=== PATIENT | male | born 1930 | race Caucasian/White ===

== ENCOUNTER 2018-12-20 18:55 | Observation (INO) | payer MEDICARE ==
[2018-12-20 21:08] LABS: Troponin I 0.018 ng/mL (< 0.028)
[2018-12-20 22:02] VITALS: BMI 25.8
[2018-12-20 23:12] LABS: Troponin I 0.014 ng/mL (< 0.028)
--- NOTE | 2018-12-21 09:14 | CT ---
CTA OF THE ABDOMEN AND PELVIS WITH BILATERAL LOWER EXTREMITY RUNOFF UTILIZING IV CONTRAST AND 3D REFO RMATTED IMAGING: INDICATION: History of chest pain with known aortic aneurysm with intense pain in the feet when the patient walks . COMPARISON: CTA aortic dissection protocol 12/20/2018. FINDINGS: ABDOMEN: There is interstitial fibrotic change involving both lower lobes with areas of subsegmental volume lo ss. There are prominent mitral annular and aortic annular calcifications. The spleen is mildly enlarged measuring 15.1 cm. No focal hepatic lesion is evident. There is a sma ll gallstone within the gallbladder. The pancreas, adrenal glands, and kidneys are normal-appearing. No free fluid or enlarged lymph nodes are evident. There is scattered diverticula involving the colon without evidence of active diverticulitis. There is a mild amount of retained stool within the colon. There is a normal appendix in the right lower q uadrant. PELVIS: There is a fat-containing right inguinal hernia. The visualized bladder, rectum, and perirectal soft tissues are unremarkable-appearing. No free fluid or enlarged lymph nodes are evident. VASCULATURE: The aneurysmal dilatation of the descending thoracic aorta and the infrarenal abdominal aorta is stab le. No definite hemodynamically significant stenosis is seen involving the celiac or SMA origins. The re nal arteries appear patent. The JOCELYNE is patent off of the large infrarenal abdominal aortic aneurysm. The right common iliac artery and iliac artery bifurcations are patent. The right common femoral art reinaldo is patent. The right common femoral bifurcation is patent. The right superficial femoral artery is patent. The right popliteal artery is patent. There is diminished contrast opacification seen i nvolving the distal right popliteal artery with no appreciable flow seen within the foreleg vasculatu re. The left common femoral artery is patent. The left common femoral bifurcation is patent. The left s uperficial femoral artery is patent. The left popliteal artery is patent. There is some high-grade stenosis involving the origin of the left anterior tibial artery. There are multifocal areas of high -grade stenosis involving the left posterior tibial artery. There is complete occlusion of the left anterior tibial artery at the level of the mid diaz. The peroneal artery is occluded within the dist al left foreleg. No acute osseous abnormality is evident. IMPRESSION: 1. Stable descending thoracic and infrarenal abdominal aortic aneurysms. The largest aneurysm is se en within the infrarenal abdominal aorta measuring 6.8 cm. Visualized celiac, superior mesenteric ar levi, and renal artery origins appear patent. The inferior mesenteric artery origin is off of the in frarenal abdominal aorta and is patent. 2. There is high-grade stenosis with complete occlusion of the distal right popliteal artery with di minished opacification seen within the foreleg vasculature through collaterals. 3. Multifocal areas of high-grade stenosis involving the proximal and mid left posterior tibial joey ry. There is complete occlusion of the left anterior tibial artery at its mid segment of the left fo releg. There is complete occlusion of the distal left peroneal artery at the level of the distal lef t foreleg. 4. Nonspecific splenomegaly. 5. Cholelithiasis. 6. Interstitial fibrotic change of both lower lobes. POS: H
[2018-12-21 12:12] VITALS: BP 141/76; TEMP 97.5
--- NOTE | 2018-12-21 17:03 | CON ---
DATE OF CONSULTATION: 12/21/2018 REQUESTING PHYSICIAN: Dr. Polanco in the ER. CHIEF COMPLAINT: Right parasternal chest pain. HISTORY OF PRESENT ILLNESS: The patient is an 88-year-old man with minimal known past medical history. The patient relates having had a pacemaker implanted in [place] about 10 years ago. He describes episodic pacemaker checks about every six months. He describes having been diagnosed with hypertension, but having never quite gotten back around taking his medicine when he ran out about six months ago. He apparently was aware of a modest size aneurysm involving his descending thoracic aorta, but does not really remember the last time it was checked. He presented to the emergency room at an outlying facility with complaints of right parasternal chest pain. The pain had a pleuritic quality to it, but was fairly persistent. He had no left-sided chest pain. No nausea, no radiation to his neck, jaws, extremities, or back. He describes having had a similar episode about 10 years ago and no cause for it was identified at that time. When he presented to the emergency room, chest x-ray was fairly unremarkable other than the presence of some aortic ectasia. A CT scan done foot with dissection protocol showed extensive calcification in his thoracic aorta and one focal area that was 4.9 cm, but the abdominal cut showed a large infrarenal abdominal aortic aneurysm of which the patient was previously unaware. He ruled out for myocardial infarction by enzymes and his discomfort gradually subsided. He was transferred here for observation in part because of his atypical chest pain and in part because of his aneurysm. PAST MEDICAL HISTORY: Significant for hypertension, but has not been on any medications for several months. He has had a pacemaker implanted and he has a known thoracic aneurysm. He reports that as a teenager, he had swelling associated with penicillin and has never had penicillin since. The patient quit smoking many years ago. FAMILY HISTORY: Negative for aneurysmal disease. REVIEW OF SYSTEMS: Negative for any eye, speech, facial, or extremity symptoms consistent with TIAs. Negative for any hip, buttock, thigh, or calf pain consistent with claudication. It is positive for some paresthesias that are at times painful in the soles of his feet, those paresthesias have been present for about 2 years. It is negative for any shortness of breath. Negative for any typical anginal-type chest pain. PHYSICAL EXAMINATION: GENERAL: He is a robust-appearing man, who appears a bit younger than his stated age. VITAL SIGNS: In the ER, his heart rate was 66 and blood pressure 144/76. This morning, his heart rate was 63 and blood pressure 141/76. He is 6 feet tall and weighs 190-3/4 pounds. HEENT: He has no xanthelasma. NECK: No JVD. No carotid bruits. CHEST: Clear to auscultation. He has a regular rate and rhythm. He has no chest wall tenderness. He has incision in his left upper chest consistent with the stated history of pacemaker implantation. ABDOMEN: Mildly protuberant, soft and nontender without palpable masses or bruits. EXTREMITIES: He has palpable radial, femoral, popliteal, and dorsalis pedis pulses bilaterally. He has no clubbing, cyanosis, or edema. NEUROLOGIC: Grossly nonfocal. LABORATORY DATA: His white count was 3.6, hemoglobin 13.9, hematocrit 45.6, and platelets are 151,000. The D-dimer was 3.05. His chemistries were normal. Glucose was 152, BUN 12, and creatinine 0.95. Troponins were 0.018, 0.012, 0.018, and 0.014. His albumin was 4.1. LFTs were normal. Calcium 9.6. His chest x-ray showed prominent aortic knob with a bit of ectasia and there is calcification in the aortic knob. He has dual-chamber pacemaker in place via the left subclavian approach. His CT scan showed extensive atherosclerotic and calcific disease in his aorta [QAMARKER] descending aorta was about 4.9 cm. His abdominal aorta, however in infrarenal position was approximately 6.8 cm AP x 6.5 cm transversely. He had calcific disease in tortuous iliacs and the CT scan does not quite go down to the right iliac bifurcation. IMPRESSION AND RECOMMENDATIONS: Incidental finding of large infrarenal abdominal aortic aneurysm. While this is not an emergency, it is large enough to warrant expeditious workup heading towards repair given his advanced age, I think EVAR if feasible is an excellent choice. I am going to set up CTA with aneurysm protocol to complete that evaluation and we will plan on seeing him in my office next week to discuss in more detail the approach to his aneurysm repair. In the meantime, we will have the computer analysis of his CTA done to select an endograft prosthesis. Job ID: [id number]
--- NOTE | 2018-12-21 22:52 | DIS ---
DATE OF ADMISSION: 12/20/2018 DATE OF DISCHARGE: 12/21/2018 PRINCIPAL DIAGNOSIS: Chest pain. SECONDARY DIAGNOSES: Infrarenal abdominal aortic aneurysm and descending thoracic aortic aneurysm. PROCEDURES PERFORMED: None. HISTORY OF PRESENT ILLNESS AND HOSPITAL COURSE: The patient is an 88-year-old man with scant past medical history, who [facility] with right parasternal chest pain that was somewhat pleuritic in nature, fairly persistent. He did have a similar episode about 10 years ago for which no particular cause could be found. He had an elevated D-dimer, prompting CT scanning that showed no evidence of pulmonary embolism or aortic dissection, but did show extensive atherosclerotic disease throughout his aorta. He had a modest sized aneurysm involving his descending thoracic aorta, which according to the patient has been known for about 10 years, but large infrarenal abdominal aortic aneurysm was also identified, which was a new finding to his knowledge. It measured up to 6.8 cm, but was asymptomatic. CT scan that he had did not quite go far enough distally to adequately plan stent graft repair. I was contacted by the emergency room physician in [place] about this and he was transferred here and I was contacted last night apparently with the expectation that he would be kept in the hospital because of his aneurysm. No clear-cut cause of his chest pain was identified. He ruled out for myocardial infarction and the pain that I was under the impression was sufficiently suspicious for cardiac pain, when I questioned him proved to not be. He underwent CTA with AAA protocol and then was allowed to go home with plans for followup in the office next week to discuss aneurysm repair in more detail and in the mean time, his images will be sent for analysis to allow for prosthesis selection and operative planning. Job ID: [id number]
== END 2018-12-21 14:45 | disposition home or self-care (01) ==
LOC: ERS 18:55 → 2SW 19:30
PROVIDERS: ADMIT Thoracic Surgery (Cardiothoracic Vascular Surgery); ATTEND Thoracic Surgery (Cardiothoracic Vascular Surgery)
DX: R07.2 Precordial pain (principal); I71.4 Abdominal aortic aneurysm, without rupture; I71.2 Thoracic aortic aneurysm, without rupture; I10 Essential (primary) hypertension; Z95.0 Presence of cardiac pacemaker; Z87.891 Personal history of nicotine dependence; Z88.0 Allergy status to penicillin
CPT/HCPCS: 75635; 84484; 93005; 99285; G0378 ×3; 36415

== ENCOUNTER 2019-03-16 12:15 | Outpatient (CLI) | payer MEDICARE ==
--- NOTE | 2019-03-16 13:30 | CT ---
EXAM: CTA Angio Abd Pelvis W WO Con 3-D reconstruction are provided PROVIDED CLINICAL HISTORY: Abdominal aortic aneurysm. COMPARISON: 12/21/2018. FINDINGS: There are mild chronic interstitial lung changes again present at each lung base. Dual lead left subclavian cardiac pacemaking leads are noted in place. There is prominent calcificati on of the mitral valve annulus. The spleen is borderline enlarged measuring 13.7 cm. Gallbladder calculus is again seen. The liver, pancreas, bilateral adrenal glands, kidneys, and urinary bladder demonstrate a normal CT a ppearance for phase of imaging. Colonic diverticulosis is again present. The appendix is visualized and normal in caliber. A fat-containing right inguinal hernia is again seen. No free fluid or fluid collection is seen in the abdomen or pelvis. There is no lymphadenopathy. Multilevel degenerative changes are seen in the spine. Again noted is a large infrarenal abdominal aortic aneurysm which measures 7.8 cm craniocaudal x7.1 c m AP x6.8 cm transverse and previously measured 7.8 cm craniocaudal x6.8 cm AP x6.6 cm transverse. There is a large amount of mural thrombus seen within the aneurysm. The aneurysm extends to the level of the iliac artery bifurcation but does not involve the iliac arteries. Vascular calcifications are again seen in the iliac arteries as well as visualized femoral arteries. The right common femoral artery is ectatic with eccentric atherosclerotic plaque seen. The abdominal aorta at the level of the renal arteries measures 3.1 cm. The infrarenal abdominal aortic aneurysm begins approximately 4.9 cm below the level of the lowest right renal artery. The descending thoracic aorta at the level of aortic hiatus is mildly dilated measuring 3.6 cm. There is atherosclerotic plaque seen at the origins of the celiac and superior mesenteric arteries wi thout significant narrowing present. The JOCELYNE remains patent. However, there is mixing of contrast seen within the abdominal aortic aneurysm at the level of the origin of the JOCELYNE. There is mild athero sclerotic plaque at the origins of each renal artery, but the single renal arteries bilaterally do appear patent. IMPRESSION: 1. Mild interval enlargement of the large infrarenal abdominal aortic aneurysm with greatest AP dimen isabela of 7.1 cm and previously the AP dimension was 6.8 cm. Large amount of mural thrombus is present. The aneurysm extends to the iliac artery bifurcation. 2. Stable dilatation of the descending thoracic aorta. 3. Cholelithiasis. 4. Borderline enlargement of the spleen similar to prior exam. 5. Fat-containing right inguinal hernia. 6. Colonic diverticulosis.
== END 2019-03-16 12:16 | disposition home or self-care (01) ==
LOC: CT 12:15
PROVIDERS: ATTEND Thoracic Surgery (Cardiothoracic Vascular Surgery)
DX: I71.4 Abdominal aortic aneurysm, without rupture (principal); I71.2 Thoracic aortic aneurysm, without rupture; K80.20 Calculus of gallbladder without cholecystitis without obstruction; K57.30 Diverticulosis of large intestine without perforation or abscess without bleeding; K40.90 Unilateral inguinal hernia, without obstruction or gangrene, not specified as recurrent
CPT/HCPCS: 74174

== ENCOUNTER 2019-10-24 17:02 | Observation (INO) | payer MEDICARE ==
[2019-10-24] MEDS ORDERED: Nitroglycerin 2% Ointment 1 INCH/1 GM Packet ONE (18:26)
[2019-10-24 20:25] LABS: CKMB 2.8 ng/mL (0-6.6)
--- NOTE | 2019-10-24 22:39 | HP ---
PRIMARY CARE PHYSICIAN: Kashif Fan MD CHIEF COMPLAINT: Double vision. HISTORY OF PRESENT ILLNESS: The patient is an extremely pleasant 89-year-old male with past medical history significant for hypertension, AAA without repair and a pacemaker. He presented to the ER today after he was taking his to lunch around noon and stated that he suddenly started having double vision from his right eye. When he would cover his right eye or close it, the double vision would disappear. He also states when he was trying to walk, he was falling to the right. He is unsure if it was a balance issue or because of the double vision. He denies any trauma or any recent illnesses. Denies any history of stroke in the past. Currently, the patient no longer sees double and he states he is back to his baseline. The double vision resolved on its own. The patient was seen in [facility], where they performed a brain CT, [place] CTA, lab work and an EKG prior to transferring to the [place] ED. PAST MEDICAL HISTORY: Hypertension, AAA without repair. PAST SURGICAL HISTORY: Pacemaker insertion. ALLERGIES: PENICILLIN. MEDICATIONS: Vitamin D3. SOCIAL HISTORY: The patient lives with his whom he is the caregiver for as she has advanced dementia. He is a retired communications systems engineer. He denies smoking, he states he quit over 20 years ago. Denies illicit drug use. He does have a history of alcohol abuse, but only drinks socially now. FAMILY HISTORY: Negative for anything pertinent to admission. REVIEW OF SYSTEMS: All other review of systems negative unless noted in the HPI. PHYSICAL EXAMINATION: VITAL SIGNS: Blood pressure 145/74, pulse 64, respiratory rate 20, temperature 98.2 orally, pain zero, O2 saturation 96% on room air. GENERAL: Appears nontoxic, appears pain free, very talkative. HEENT: Head atraumatic, normocephalic. Extraocular muscles intact. No nystagmus. Visual moore appeared normal secondary to finger counting. RESPIRATORY: Normal chest rise. Clear to auscultation bilaterally. No wheezing or rales. No rhonchi. CARDIAC: Pacemaker in place. Regular rate and rhythm. No murmurs, no rubs or gallops. ABDOMEN: Bowel sounds normal. Nontender. No distention noted. EXTREMITIES: No cyanosis, no edema. NEURO: The patient is oriented to person, place, and time. Speech is normal. Gait not assessed at this time. Cranial nerves 2 through 12 intact. DTRs normal. No focal deficits. No cerebellar deficits. No nystagmus. No double vision. PSYCH: Normal affect. Normal behavior. LABORATORY DATA: EKG showed atrial paced 61 beats per minute. Brain CT, no acute intracranial abnormality, but did show some mild chronic small-vessel white matter ischemic changes with a remote small lacunar infarct involving the right cerebellar hemisphere. CT of [place] angio showed no significant stenosis or occlusion levels of [place]. Did show irregular edema in the distal right M1 segment and scattered atherosclerosis throughout the cervical carotid arteries with no significant stenosis noted. Laboratory work: White blood cells 4.3, hemoglobin 13.4, hematocrit 45.9, platelets 129. Sodium 142, potassium 4.0. BUN 16, creatinine 1.08, GFR is 64, glucose 130. Initial troponin 0.179. Next troponin 0.200. BNP 49.3, TSH 2.714. IMPRESSION AND PLAN: 1. Transient ischemic attack, acute, stable. We will consult Neurology in the a.m. We will attempt to have an MRI of the brain completed; however, due to pacemaker it may not be able to be completed. We will start patient on aspirin and atorvastatin with a fasting lipid panel to be drawn in the morning. Echo also to be completed. Stroke team to see the patient. 2. Elevated troponin. 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 May consult Cardiology if the patient becomes symptomatic or if it continues to became elevated. 3. Gastrointestinal and deep vein thrombosis prophylaxis addressed. The patient wishes to be full code and surrogate decision maker as the patient's medical power of mergers and acquisitions attorney is his Dragan lorenz. Job ID: [id number] [facility]
[2019-10-24] MEDS ORDERED: Ondansetron PF 4 MG/2 ML Vial IVP PRN (23:20)
[2019-10-24] MEDS ORDERED: Ondansetron ODT 4 MG TAB SL PRN (23:20)
[2019-10-24] MEDS ORDERED: Nitroglycerin 2% Ointment 1 INCH/1 GM Packet TOP SCH (23:59)
[2019-10-25] MEDS: Famotidine 20 MG TAB PO SCH ×2 (00:08→13:20)
[2019-10-25] MEDS: Atorvastatin Calcium 40 MG TAB PO SCH ×2 (00:08→19:08)
[2019-10-25 00:09] LABS: Troponin I 0.187 ng/mL (< 0.028)
[2019-10-25 02:34] VITALS: BMI 27.8
[2019-10-25 04:45] LABS: #Eosinphils 0.2 thou/uL (0.0-0.7); #Lymphocytes 0.8 thou/uL (1.20-3.40); #Monocytes 0.4 thou/uL (0.11-0.59); #Neutrophils 2.2 thou/uL (1.40-6.50); %Basophils 0.4 % (0.0-1.0); %Eosinophils 4.3 % (0.0-10.0); %Lymphocytes 22.3 % (21.0-51.0); %Monocytes 10.6 % (0.0-10.0); %Neutrophils 62.5 % (42.0-75.0); Hemoglobin 11.7 g/dL (14.0-18.0); Mean Corpuscular HGB CONC 31.6 g/dL (32.0-36.0); Mean Corpuscular Hemoglobin 27.7 pg (27.0-31.0); Mean Corpuscular Volume 87.8 fL (78.0-98.0); Mean Platelet Volume 7.9 fL (7.4-10.4); Platelet Count 117 thou/uL (130-400); RBC Distribution Width 14.3 % (11.5-14.5); Red Blood Cell (RBC) Count 4.23 mill/uL (4.70-6.10); White Blood Cell (WBC) Count 3.6 thou/uL (4.8-10.8)
[2019-10-25 05:02] LABS: Anion Gap 9 mmol/L (10-20); BUN (Urea Nitrogen) 14 mg/dL (8.4-25.7); Calc. Creatinine Clearance 65 mL/min (70-130); Calcium 8.3 mg/dL (7.8-10.44); Carbon Dioxide 28 mmol/L (23-31); Cardiac Risk 5.2 (Less than 4.5); Chloride 107 mmol/L (98-107); Cholesterol 150 mg/dl (< 200 Desired); Estimated GFR-MDRD 70; Glucose 116 mg/dL (83-110); HDL Cholesterol 29 mg/dL (>60 Neg Risk); Potassium 3.7 mmol/L (3.5-5.1); Sodium 140 mmol/L (136-145); Triglycerides 474 mg/dL (Less than 150)
[2019-10-25] MEDS ORDERED: Aspirin 81 mg Enteric Coated Tablet PO SCH (09:00)
[2019-10-25] MEDS ORDERED: Enoxaparin Sodium 40 MG/0.4 ML SYRINGE SC SCH (09:00)
--- NOTE | 2019-10-25 10:48 | ULT ---
BILATERAL CAROTID DUPLEX ULTRASOUND: HISTORY: Double vision. TECHNIQUE: Seo scale ultrasound with color flow and spectral Doppler imaging of the extracranial carotid artery systems was performed bilaterally. FINDINGS: There is plaque formation on both sides. The peak systolic velocity in the right ICA measures 78 cm/s with an end-diastolic velocity of 22 cm/ s and a systolic ratio of 1.03. The peak systolic velocity in the left ICA measures 65 cm/s with an end-diastolic velocity of 20 cm/s and a systolic ratio of 0.61. Flow in both vertebral arteries remains antegrade. IMPRESSION: No evidence of hemodynamically significant stenosis. POS: [facility]
--- NOTE | 2019-10-25 11:37 | PDOC.HOSPP ---
- Subjective Encounter Date: 10/25/19 Encounter Time: 07:10 Subjective: Patient seen and examined. No new complaints. No overnight events - Objective Vital Signs & Weight: Vital Signs (12 hours) Temp Pulse Resp BP Pulse Ox 10/25/19 04:00 97.7 F 63 16 108/57 L 96 10/25/19 00:16 98.2 F 59 L 18 114/62 96 Weight Weight 204 lb 14.4 oz I&O: 10/24/19 10/25/19 10/26/19 06:59 06:59 06:59 Intake Total 500 Balance 500 Result Diagrams: 10/25/19 04:30 10/25/19 04:30 Radiology Reviewed by me: Yes EKG Reviewed by me: Yes Hospitalist ROS - Review of Systems Constitutional: denies: fever, chills, sweats, weakness, malaise, other ENT: denies: ear pain, ear discharge, nose pain, nose discharge, nose congestion , mouth pain, mouth swelling, throat pain, throat swelling, other Respiratory: denies: cough, dry, shortness of breath, hemoptysis, SOB with excertion, pleuritic pain, sputum, wheezing, other Cardiovascular: denies: chest pain, palpitations, orthopnea, paroxysmal noc. dyspnea, edema, light headedness, other Gastrointestinal: denies: nausea, vomiting, abdominal pain, diarrhea, constipation, melena, hematochezia, other Genitourinary: denies: dysuria, frequency, incontinence, hematuria, retention, other Musculoskeletal: denies: neck pain, shoulder pain, arm pain, back pain, hand pain, leg pain, foot pain, other Skin: denies: rash, lesions, andrew, bruising, other - Medication Medications: Active Medications Generic Name Dose Route Start Last Admin Trade Name Freq PRN Reason Stop Dose Admin Aspirin 81 mg 10/25/19 09:00 10/25/19 10:21 Ecotrin PO 81 mg DAILY GEORGE Administration Atorvastatin Calcium 40 mg 10/24/19 21:00 10/25/19 00:08 Lipitor PO 40 mg HS GEORGE Administration Cholecalciferol 1,000 units 10/25/19 09:00 10/25/19 10:21 Vitamin D3 PO 1,000 units DAILY GEORGE Administration Enoxaparin Sodium 40 mg 10/25/19 09:00 10/25/19 10:20 Lovenox SC 40 mg 0900 GEORGE Administration Famotidine 20 mg 10/24/19 21:00 10/25/19 00:08 Pepcid PO 20 mg BID GEORGE Administration Sodium Chloride 10 ml 10/24/19 20:43 10/25/19 10:21 Flush - Normal Saline IVF 10 ml PRN PRN Administration Saline Flush - Exam General Appearance: NAD, awake alert Eye: PERRL, anicteric sclera ENT: normocephalic atraumatic, no oropharyngeal lesions Neck: supple, symmetric, no JVD, no thyromegaly Heart: RRR, no murmur, no gallops, no rubs, normal peripheral pulses Respiratory: CTAB, no wheezes, no rales, no ronchi Gastrointestinal: soft, non-tender, non-distended, normal bowel sounds Extremities: no cyanosis, no clubbing, no edema Skin: normal turgor, no lesions Neurological: cranial nerve grossly intact, no focal deficits Musculoskeletal: normal tone, normal strength Psychiatric: normal affect, normal behavior Hosp A/P (1) TIA (transient ischemic attack) Code(s): G45.9 - TRANSIENT CEREBRAL ISCHEMIC ATTACK, UNSPECIFIED Status: Acute (2) Elevated troponin Code(s): R79.89 - OTHER SPECIFIED ABNORMAL FINDINGS OF BLOOD CHEMISTRY Status : Acute (3) Hypertriglyceridemia Code(s): E78.1 - PURE HYPERGLYCERIDEMIA Status: Acute (4) Pancytopenia Code(s): D61.818 - OTHER PANCYTOPENIA Status: Acute - Plan old records reviewed/req, plan discussed w/ family neuro consulted mri not possible due to pacemaker echo carotid normal will add folic acid and vitamin b12 discharge pending above
--- NOTE | 2019-10-25 12:25 | CON ---
NEUROLOGY DOCUMENTATION DATE OF CONSULTATION: 10/25/2019 REASON FOR CONSULTATION: Double vision, rule out CVA. HISTORY OF PRESENT ILLNESS: Mr. Alves is an 89-year-old male with medical history significant for hypertension and AAA without repair and status post pacemaker. He presented to the emergency room yesterday at [facility] in [place] because of double vision. He was taking his to lunch around noon and started having double vision from the right eye, he sees object side by side and the double vision goes away when he closes the other eye. He also had problem with walking and was falling to the right. The patient denies any recent illness, nausea, vomiting, headache, vertigo, chest pain, abdominal pain, focal weakness or paresthesias associated with the episode. He went to [place] ER with a head CT and the CTA. The CTA of the [place] was done, which was unremarkable. EKG was also done, which was also unremarkable. The patient denies any history of prior episodes and the symptoms resolved completely today. He denies any double vision. REVIEW OF SYSTEMS: All 14 systems were reviewed and were negative except the pertinent positives and negatives mentioned in the HPI. PAST MEDICAL HISTORY: Hypertension, AAA without repair. PAST SURGICAL HISTORY: Pacemaker insertion. ALLERGIES: PENICILLIN. MEDICATIONS: Vitamin D. SOCIAL HISTORY: The patient is , lives with his who has advanced dementia, retired fiber optics engineer. Denies smoking, alcohol, illegal drug use. He quit smoking over 20 years ago. FAMILY HISTORY: Negative for stroke. PHYSICAL EXAMINATION: VITAL SIGNS: Blood pressure 140/70, pulse 80, respiratory rate 18. CVS: Regular rate and rhythm. CHEST: Clear. ABDOMEN: Soft. NECK: No carotid bruit. NEUROLOGIC: Mental status: The patient is alert and oriented to person, place , and time. Speech is normal. Fund of knowledge is adequate. Recent and remote memory intact. Cranial nerves 2 through 12 intact. Deep tendon reflexes symmetric bilaterally. Cerebellar, finger-nose testing intact. Sensory intact. Gait deferred due to patient's safety reasons. DATA REVIEWED: I reviewed the head CT, which did not reveal any acute intracranial pathology. His CTA of the [place] did not show any significant stenosis. EKG was paced with 61 beats per minute. Lab work was essentially unremarkable. ASSESSMENT AND PLAN: Mr. Alves is an 89-year-old pleasant male, who was consulted for a transient ischemic attack, unable to perform an MRI because of pacemaker. Recommend aspirin and statin for secondary stroke prevention. We will follow up on fasting lipid panel, TSH and hemoglobin A1c. Neuro checks every 4 hours, telemetry, 2D echo to rule out cardioembolic source. Continue home medications. PT/OT. We will continue to follow. Thank you for the consult. Carotid Dopplers to rule out significant stenosis. Job ID: [id number] [facility]
[2019-10-25] MEDS ORDERED: Loperamide HCl 2 MG CAP PO PRN (13:52)
[2019-10-25] MEDS ORDERED: Senokot S 8.6-50 MG TAB PO PRN (13:52)
[2019-10-25] MEDS ORDERED: Bisacodyl 5 MG TAB PO PRN (13:52)
[2019-10-25] MEDS ORDERED: Cepastat Lozenges 1 LOZ PO PRN (13:52)
[2019-10-25] MEDS ORDERED: Zolpidem Tartrate 5 MG TAB PO PRN (13:52)
[2019-10-25] MEDS ORDERED: Ondansetron PF 4 MG/2 ML Vial IVP PRN (13:52)
[2019-10-25] MEDS ORDERED: Diabetic Tussin 200 MG/10 ML UDCUP PO PRN (13:52)
[2019-10-25] MEDS ORDERED: Calcium Carbonate 500 MG ChewTAB PO PRN (13:52)
[2019-10-25] MEDS ORDERED: Ondansetron ODT 4 MG TAB PO PRN (13:52)
[2019-10-25] MEDS ORDERED: Sodium Chloride 0.65% Nasal 44 ML BOT EA NARE PRN (13:52)
[2019-10-25] MEDS ORDERED: hydrALAZINE 20 MG/ML VIAL SLOW IVP PRN (13:52)
[2019-10-25] MEDS ORDERED: Loratadine 10 MG TAB PO PRN (13:52)
[2019-10-25 16:07] VITALS: BP 137/69; TEMP 97.7
--- NOTE | 2019-10-26 08:32 | DIS ---
DATE OF ADMISSION: 10/24/2019 DATE OF DISCHARGE: 10/25/2019 PRIMARY CARE PHYSICIAN: . DISCHARGE DISPOSITION: Home. PRIMARY DISCHARGE DIAGNOSES: 1. Transient ischemic attack. 2. Demand ischemia. 3. Pancytopenia. 4. Hypertriglyceridemia. SECONDARY DISCHARGE DIAGNOSIS: None. PRIMARY PROCEDURE/OPERATION: None. RADIOLOGICAL INVESTIGATION: Carotid Doppler negative for any stenosis. Echocardiography showed a normal EF, diastolic dysfunction. SIGNIFICANT LABORATORY DATA: Hemoglobin 11.7, WBC 3.6, platelet 117. Creatinine 1.01. Troponin 0.187. Triglycerides 474. DISCHARGE MEDICATIONS: 1. Vitamin D3 1000 units p.o. daily. 2. Aspirin 81 mg p.o. daily. 3. Lipitor 40 mg p.o. q.h.s. 4. Vitamin B12 1000 mcg p.o. daily. 5. Folic acid 1 mg p.o. daily. CONTRAINDICATION: None. CODE STATUS: Full code. INPATIENT INTERPRETATIVE DANCER: Neurology. TEST RESULT PENDING ON DISCHARGE: None. ALLERGIES: PENICILLIN. DISCHARGE PLAN: Post hospital, the patient will follow up with primary care physician in 1 week. The patient will follow up with Neurology. HOSPITAL COURSE: An 89-year-old male, who was admitted by nurse practitioner, please see her H and P for more details. The patient was having diplopia without any other focal neurological finding. The patient was evaluated at [facility], where he had a CT brain as well as CT angiography, which was essentially unremarkable. The patient was admitted for TIA workup. He had mildly elevated troponin, but he was not having any chest pain. His EKG was unremarkable. We did echocardiography, which showed diastolic dysfunction. Carotid Doppler was negative for any stenosis other than atherosclerosis. 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 Neurology saw this patient and they recommended discharge. The patient has pancytopenia and that is why we added folic acid and B12 therapy. The patient has hypertriglyceridemia and that is why we added Lipitor therapy. The patient was not requiring any blood pressure medication. He will follow up with his primary care physician in 1 week and Neurology in 2 weeks. Please see my progress note for more details. While in hospital, we interrogated his pacemaker, which was unremarkable. Job ID: [id number]
[2019-10-26] MEDS ORDERED: Cyanocobalamin (Vitamin B-12) 1,000 MCG TAB PO SCH (09:00)
[2019-10-26] MEDS ORDERED: Folic Acid 1 MG TAB PO SCH (09:00)
--- NOTE | 2019-10-28 14:52 | EKG ---
Test Reason : Blood Pressure : / mmHG Vent. Rate : 061 BPM Atrial Rate : 061 BPM P-R Int : 236 ms QRS Dur : 152 ms QT Int : 440 ms P-R-T Axes : 027 247 114 degrees QTc Int : 442 ms Atrial-paced rhythm with prolonged AV conduction Non-specific intra-ventricular conduction block Lateral infarct , age undetermined Abnormal ECG Confirmed by NIK KOHLER, ([id number]), art editor ULYSSES CHA ([id number]) on 10/28/2019 2:52:29 PM Referred By: Confirmed By:MICHAEL ZARAGOZA MD
== END 2019-10-25 19:50 | disposition home or self-care (01) ==
LOC: ERS 17:02 → 2SE 17:38
PROVIDERS: ADMIT Internal Medicine; ATTEND Internal Medicine
DX: G45.9 Transient cerebral ischemic attack, unspecified (principal); I24.8 Other forms of acute ischemic heart disease; D61.818 Other pancytopenia; E78.1 Pure hyperglyceridemia; I10 Essential (primary) hypertension; I71.4 Abdominal aortic aneurysm, without rupture; F10.11 Alcohol abuse, in remission; Z87.891 Personal history of nicotine dependence; Z88.0 Allergy status to penicillin; Z95.0 Presence of cardiac pacemaker
CPT/HCPCS: 36415; 80048; 80061; 82553; 83880; 85025; 93005; 93306; 93880; 96372; G0378; J1650